=== PATIENT | male | born 1995 | race Caucasian/White ===

== ENCOUNTER 2020-07-13 20:20 | Emergency (ER) | payer BC, SELFPAY ==
[2020-07-13] MEDS ORDERED: Boostrix 0.5 ML (Tdap) VIAL ONE (20:41)
[2020-07-13] MEDS ORDERED: Amoxicillin/Potassium Clav 875 MG TAB ONE ×2 (20:41→20:42)
== END 2020-07-13 21:25 | disposition home or self-care (01) ==
LOC: MADERS 20:20
DX: S61.452A Open bite of left hand, initial encounter (principal); Z23 Encounter for immunization; L03.114 Cellulitis of left upper limb; J45.909 Unspecified asthma, uncomplicated; W54.0XXA Bitten by dog, initial encounter
CPT/HCPCS: 90471; 90715

== ENCOUNTER 2021-04-24 09:23 | Emergency (ER) | payer BC, SELFPAY ==
[2021-04-25 19:53] LABS: SARS-CoV-2 PCR by NAA Not Detected (NotDetected)
== END 2021-04-24 10:20 | disposition home or self-care (01) ==
LOC: MADERS 09:23
DX: J06.9 Acute upper respiratory infection, unspecified (principal); Z20.822 Contact with and (suspected) exposure to COVID-19; J45.909 Unspecified asthma, uncomplicated
CPT/HCPCS: 99283; U0003; U0005

== ENCOUNTER 2024-09-20 10:40 | Emergency (ER) | payer BC, SELFPAY ==
[2024-09-20] MEDS ORDERED: Lidocaine 1% PF 5 ML VIAL ONE (11:03)
[2024-09-20] MEDS ORDERED: cefTRIAXone (ROCEPHIN) 500 MG VIAL ONE (11:03)
[2024-09-20 11:04] LABS: Bilirubin Negative (Negative); Blood, Urine Negative (Negative); Clarity Hazy (Clear); Glucose, Urine (Dipstick) Negative (Negative); Ketone, Urine Negative (Negative); Leukocyte Trace (Negative); Nitrite Negative (Negative); Protein, Urine (Dipstick) 30 mg/dL (Neg-Trace); Urobilinogen 0.2 mg/dL (Less than 2)
[2024-09-20 11:07] LABS: RBC/HPF 0-3 HPF (0-3)
[2024-09-20 11:08] LABS: Bacteria/HPF Rare-Few HPF (None Seen); CAUTI Indications for Culture Dysuria,urgency,freq; Mucous/LPF 2+ LPF (<2+); Squamous Epithelial 0-3 HPF (0-3); Urine Culture Reflex Yes Yes; WBC/HPF 21-50 HPF (0-3)
[2024-09-21 01:49] LABS: Chlam.trachomatis by PCR,Urine Not Detected (NotDetected); GC N.gonorrhoeae PCR,UrineVOID Not Detected (NotDetected)
== END 2024-09-20 11:33 | disposition home or self-care (01) ==
LOC: MADERS 10:40
DX: R82.81 Pyuria (principal); Z20.2 Contact with and (suspected) exposure to infections with a predominantly sexual mode of transmission
CPT/HCPCS: 81001; 87086; 87491; 87591; 96372; 99283; J0696